=== PATIENT | female | born 1955 | race Caucasian/White ===

== ENCOUNTER 2017-11-01 14:11 | Emergency (ER) | payer OTHER ==
[2017-11-01] MEDS ORDERED: Ketorolac 30 MG/ML SDV IVPUSH ONE (14:39)
[2017-11-01] MEDS ORDERED: Sodium Chloride 0.9% 1,000 ML IV ONE (14:39)
[2017-11-01] MEDS ORDERED: Ondansetron 4 MG/2 ML SDV IV ONE (14:43)
--- NOTE | 2017-11-01 14:47 | EDM.PDOC ---
ED HPI GENERAL MEDICAL PROBLEM - General Chief Complaint: Genitourinary Problem Stated Complaint: KIDNEY STONE?? [phone] Time Seen by Provider: 11/01/17 14:40 Source of Information: Reports: Patient History Limitations: Reports: No Limitations - History of Present Illness INITIAL COMMENTS - FREE TEXT/NARRATIVE: This 61 yo female patient reports to the ED with left flank pain, nausea/ vomiting and a history of kidney stones. The patient reports her symptoms started about 3 hours ago and have continued to get worse throughout the afternoon. The patient reports she normally goes to the clinic, but her PCP is out of the office today. Onset: Today Onset Date: 11/01/17 Onset Time: 12:00 Duration: Constant, Getting Worse Location: Reports: Back (left ) Quality: Reports: Ache, Sharp, Stabbing Severity: Severe Improves with: Reports: None Worsens with: Reports: None Associated Symptoms: Reports: Nausea/Vomiting, Other (pain) Left Flank Pain Score (Numeric/FACES): 9 - Related Data Allergies Allergy/AdvReac Type Severity Reaction Status Date / Time No Known Allergies Allergy Verified 11/01/17 14:25 Home Meds: Home Meds Olmesartan Medoxomil [Benicar] 40 mg PO DAILY 11/11/14 [History] Simvastatin [Simvastatin] 40 mg PO BEDTIME 11/11/14 [History] metFORMIN [Glucophage] 1,000 mg PO BID 11/11/14 [History] Insulin Aspart [Novolog Flexpen] 6 units SUBCUT 0800 11/01/17 [History] Insulin Aspart [Novolog Flexpen] 6 units SUBCUT 1200 11/01/17 [History] Insulin Aspart [Novolog Flexpen] 8 units SUBCUT 1800 11/01/17 [History] Insulin Detemir [Levemir] 42 units SUBCUT BEDTIME 11/01/17 [History] Past Medical History Cardiovascular History: Reports: Hypertension Genitourinary History: Reports: Renal Calculus Endocrine/Metabolic History: Reports: Diabetes, Type II - Infectious Disease History Infectious Disease History: Reports: Chicken Pox, Measles, Mumps - Past Surgical History Female Surgical History: Reports: Kidney stone extraction Social & Family History - Family History Family Medical History: Noncontributory - Tobacco Use Smoking Status *Q: Never Smoker Second Hand Smoke Exposure: No - Caffeine Use Caffeine Use: Reports: Soda - Recreational Drug Use Recreational Drug Use: No ED ROS GENERAL - Review of Systems Review Of Systems: ROS reveals no pertinent complaints other than HPI. ED EXAM, RENAL/ - Physical Exam Exam: See Below Exam Limited By: No Limitations General Appearance: Alert, WD/WN, Severe Distress Eye Exam: Bilateral Eye: EOMI, Normal Inspection, PERRL Ears: Normal External Exam, Normal Canal, Hearing Grossly Normal, Normal TMs Nose: Normal Inspection, Normal Mucosa, No Blood Throat/Mouth: Normal Inspection, Normal Lips, Normal Teeth, Normal Gums, Normal Oropharynx, Normal Voice, No Airway Compromise Head: Atraumatic, Normocephalic Neck: Normal Inspection, Supple, Non-Tender, Full Range of Motion Respiratory/Chest: No Respiratory Distress Cardiovascular: Normal Peripheral Pulses, Regular Rate, Rhythm, No Edema, No Gallop, No JVD, No Murmur, No Rub GI/Abdominal: Normal Bowel Sounds, No Organomegaly, No Distention, No Abnormal Bruit, No Mass, Pelvis Stable, Tender (left side) (Female) Exam: Deferred Rectal (Female) Exam: Deferred Back Exam: CVA Tenderness (L) Extremities: Normal Inspection, Normal Range of Motion, Non-Tender, Normal Capillary Refill, No Pedal Edema Neurological: Alert, Oriented, CN II-XII Intact, Normal Cognition, Normal Gait, Normal Reflexes, No Motor/Sensory Deficits Psychiatric: Normal Affect, Normal Mood Skin Exam: Warm, Dry, Intact, Normal Color, No Rash Lymphatic: No Adenopathy Course - Vital Signs Last Recorded V/S: Last Vital Signs Temp 36.6 C 11/01/17 15:34 Pulse 65 11/01/17 15:34 Resp 18 11/01/17 15:34 BP 143/60 H 11/01/17 15:34 Pulse Ox 95 11/01/17 15:34 - Orders/Labs/Meds Labs: Laboratory Tests 11/01/17 11/01/17 11/01/17 Range/Units 14:14 14:48 14:48 WBC 10.2 H (5.0-10.0) 10^3/uL RBC 4.54 (4.2-5.4) 10^6/uL Hgb 13.7 (12.0-16.0) g/dL Hct 40.6 (37.0-47.0) % MCV 89.4 (80-100) fL MCH 30.2 (27.0-34.0) pg MCHC 33.7 (33.0-35.0) g/dL Plt Count 203 (150-450) 10^3/uL Neut % (Auto) 66.3 (42.2-75.2) % Lymph % (Auto) 23.8 (20.5-50.1) % [place] % (Auto) 8.1 H (2-8) % Eos % (Auto) 1.2 (1.0-3.0) % Baso % (Auto) 0.6 (0.0-1.0) % Sodium 141 (135-145) mmol/L Potassium 3.3 L (3.6-5.0) mmol/L Chloride 101 (101-111) mmol/L Carbon Dioxide 33.0 H (21.0-31.0) mmol/L Anion Gap 10.3 BUN 18 (7-18) mg/dL Creatinine 0.9 (0.6-1.3) mg/dL Est Cr Clr Drug Dosing 55.25 mL/min Estimated GFR (MDRD) > 60 BUN/Creatinine Ratio 20.00 Glucose 166 H (74-105) mg/dL Calcium 9.0 (8.4-10.2) mg/dl Total Bilirubin 0.4 (0.2-1.0) mg/dL AST 20 (10-42) IU/L ALT 22 (10-60) IU/L Alkaline Phosphatase 83 (42-121) IU/L Total Protein 7.1 (6.7-8.2) g/dl Albumin 4.0 (3.2-5.5) g/dl Globulin 3.1 Albumin/Globulin Ratio 1.29 Urine Color Dark yellow (YELLOW) Urine Appearance Cloudy (CLEAR) Urine pH 5.0 (5.0-9.0) Ur Specific [place] 1.025 (1.005-1.030) Urine Protein 30 H (NEGATIVE) Urine Glucose (UA) Negative (NEGATIVE) Urine Ketones Negative (NEGATIVE) Urine Occult Blood Large H (NEGATIVE) Urine Nitrite Negative (NEGATIVE) Urine Bilirubin Negative (NEGATIVE) Urine Urobilinogen 0.2 (0.2-1.0) mg/dL Ur Leukocyte Esterase Trace H (NEGATIVE) Urine RBC >100 H /HPF Urine WBC 0-5 (0-5/HPF) /HPF Ur Epithelial Cells Rare /HPF Urine Bacteria Rare (0-FEW/HPF) /HPF Meds: Medications Discontinued Medications Generic Name Dose Route Start Last Admin Trade Name Colt PRN Reason Stop Dose Admin Sodium Chloride 1,000 mls @ 999 mls/hr 11/01/17 14:39 11/01/17 14:47 Normal Saline IV 11/01/17 15:39 999 mls/hr .BOLUS ONE Administration Ketorolac Tromethamine 30 mg 11/01/17 14:39 11/01/17 14:50 Toradol IVPUSH 11/01/17 14:40 30 mg ONETIME ONE Administration Ondansetron HCl 4 mg 11/01/17 14:43 11/01/17 14:51 Zofran IV 11/01/17 14:44 4 mg ONETIME ONE Administration Tamsulosin HCl 0.4 mg 11/01/17 15:51 11/01/17 15:57 Flomax PO 11/01/17 15:52 0.4 mg ONETIME ONE Administration Departure - Departure Time of Disposition: 16:10 Disposition: Home, Self-Care 01 Condition: Fair Clinical Impression: Kidney stone on left side - Discharge Information Instructions: Kidney Stones, [id number] Referrals: Sabrina Owens PA-C [Primary Care Provider] - Forms: ED Department Discharge Care Plan Goals: The patient was advised of the examination, lab and CT results during the visit. The patient was given IV fluids, IV Toradol, IV Zofran and an oral dose of Flomax while in the ED. The patient was discharged with scripts for: 1) Toradol (10 mg) #20 to take 1 by mouth every 6 hours, 2) Flomax (0.4 mg) #4 to take 1 by mouth daily and 3) Zofran ODT (4 mg) #10 to take 1 by mouth every 6 hours as needed for nausea. If the patient has any additional symptoms or concerns, the patient should follow-up with her primary care facility or return to the emergency department.
[2017-11-01 15:15] LABS: CHLORIDE,CL 101 mmol/L (101-111); SODIUM,NA 141 mmol/L (135-145)
--- NOTE | 2017-11-01 15:42 | CT ---
Clinic history: 61-year-old 156 pound diabetic female with known "kidney stones" who presents today i n the emergency department with left flank pain. Scan technique: Volume acquisition of data emergency unenhanced CT scan of the abdomen and pelvis (ki dneys/ureters/bladder) obtained with the patient lying supine on the Siemens multi slice scanner [place], [place]. All data archived in the PACS system for storage, reform atting and study. Interpretation: Abnormal. 1. *New (same?) smaller 4 mm diameter stone lodged in the distal left ureter with pronounced proximal ipsilateral ureterectasis and pyelocaliectasis; edematous ipsilateral large kidney with surrounding small pyelosinus backflow typical chronic obstruction. 2. Huge lower pole calyceal and left renal pelvic calcification and tiny upper pole calculus left kid leon that was present on previous examination a November 2015. 3. Tiny calculus lower pole calyx unobstructed contralateral right kidney. 4. Several phleboliths in the pelvis. Normal midline uterus. No variant or adnexal mass lesions. 5. Chronic lower lumbar L5-S1 disc disease. 6. Sigmoid diverticulosis. No sign of pelvic or abdominal mass lesion, mechanical bowel obstruction, ascites or free intraperitoneal air. 7. Gallbladder, unenhanced liver, stomach, spleen and pancreas unremarkable. CONCLUSION: High-grade obstructive uropathy, on the left, associated with 4 mm diameter distal ureter al calculus.
[2017-11-01] MEDS ORDERED: Tamsulosin 0.4 MG Cap.ER PO ONE (15:51)
== END 2017-11-01 16:17 | disposition home or self-care (01) ==
LOC: DL.ED 14:11
DX: N20.0 Calculus of kidney (principal); I10 Essential (primary) hypertension; E11.9 Type 2 diabetes mellitus without complications; Z79.4 Long term (current) use of insulin; Z79.899 Other long term (current) drug therapy
CPT/HCPCS: 36415; 74176; 80053; 81001; 85025; 96361; 96374; 96375; 99284; A9270; J1885; J2405; J7030

== ENCOUNTER 2018-07-17 09:00 | Emergency (ER) | payer OTHER ==
[2018-07-17] MEDS: Sodium Chloride 0.9% 1,000 ML IV SCH (09:30)
[2018-07-17] MEDS: Ondansetron 4 MG/2 ML SDV IV ONE (09:31)
[2018-07-17] MEDS: Ketorolac 30 MG/ML SDV IVPUSH ONE (09:32)
[2018-07-17 10:08] LABS: ANION GAP 15.7
--- NOTE | 2018-07-17 10:29 | CT ---
Clinical history: 62-year-old female with a history of "stones" who presents in the emergency departm ent today with right flank/groin pain and hematuria. Patient noted on previous CT scan 21 November 2017 to have "bilateral nephrolithiasis without obstructive uropathy". Scan technique: Volume acquisition of data emergency unenhanced CT scan of the abdomen and pelvis (ki dneys/ureters/bladder) obtained while the patient was lying supine on the Siemens multi slice scanner [place], [place]. All data archived in the PACS system for storage, r eformatting axial/sagittal/coronal planes and study. Interpretation: Abnormal. 1. *Single 4 x 6 mm oval calcification lodged in the distal right ureter where it crosses the pelvic brim (proximal ureteral dilatation with ipsilateral right pyelocaliectasis new since previous exam Ja nuary 2018) i.e acutely obstructing distal right ureterolith. 2. Tiny punctate calcification lower pole calyx right kidney noted incidentally. No intraluminal calc ification urinary bladder. 3. Normal reniform size axis and configuration contralateral left kidney which has several calcificat ions identified respectively in the lower and midpole calyces (large "rock" demonstrated in the left renal pelvis on 21 November 2017 is no longer present). 4. No solid renal cortical mass lesion. Multiple phlebolith-like radiopacities in the pelvis that wer e present on earlier exam. 5. No pelvic or abdominal mass lesion and no signs of mesenteric or retroperitoneal lymphadenopathy. Normal appendix RLQ. No sign of mechanical bowel obstruction, ascites or free intraperitoneal air. 6. Gallbladder, unenhanced liver, stomach, spleen, pancreas and adrenal glands unremarkable. Divertic froylan sigmoid colon. CONCLUSION: Obstructing 4 x 6 mm distal right ureterolith.
[2018-07-17] MEDS: Ondansetron 4 MG/2 ML SDV ONE (10:45)
[2018-07-17] MEDS: Ketorolac 30 MG/ML SDV ONE (10:45)
--- NOTE | 2018-07-17 11:17 | EDM.PDOC ---
ED HPI GENERAL MEDICAL PROBLEM - General Chief Complaint: Flank Pain Stated Complaint: [id number] KIDNEY STONE Time Seen by Provider: 07/17/18 09:20 Source of Information: Reports: Patient History Limitations: Reports: No Limitations - History of Present Illness INITIAL COMMENTS - FREE TEXT/NARRATIVE: c/o pain right flank radiating around to groin. Hx kidney stones in past with surgical removal of stone on left in November. Followed up in April and was told every thing was clear. Pain started Sunday, unbearable this am, nauseated, no vomiting. No fever, rare chills. Right Flank Pain Score (Numeric/FACES): 10 - Related Data Allergies Allergy/AdvReac Type Severity Reaction Status Date / Time No Known Allergies Allergy Verified 11/01/17 14:25 Home Meds: Home Meds Olmesartan Medoxomil [Benicar] 40 mg PO DAILY 11/11/14 [History] Simvastatin 40 mg PO BEDTIME 11/11/14 [History] metFORMIN [Glucophage] 1,000 mg PO BID 11/11/14 [History] Insulin Aspart [Novolog Flexpen] 6 units SUBCUT 0800 11/01/17 [History] Insulin Aspart [Novolog Flexpen] 6 units SUBCUT 1200 11/01/17 [History] Insulin Aspart [Novolog Flexpen] 8 units SUBCUT 1800 11/01/17 [History] Insulin Detemir [Levemir] 42 units SUBCUT BEDTIME 11/01/17 [History] Past Medical History Cardiovascular History: Reports: Hypertension Genitourinary History: Reports: Renal Calculus Endocrine/Metabolic History: Reports: Diabetes, Type II - Infectious Disease History Infectious Disease History: Reports: Chicken Pox, Measles, Mumps - Past Surgical History Female Surgical History: Reports: Kidney stone extraction Social & Family History - Family History Family Medical History: Noncontributory - Tobacco Use Smoking Status *Q: Never Smoker - Caffeine Use Caffeine Use: Reports: Coffee - Recreational Drug Use Recreational Drug Use: No ED ROS GENERAL - Review of Systems Review Of Systems: See Below Constitutional: Reports: Chills HEENT: Reports: No Symptoms Respiratory: Reports: No Symptoms Cardiovascular: Reports: No Symptoms Endocrine: Reports: No Symptoms GI/Abdominal: Reports: Abdominal Pain (lower/groin), Nausea : Reports: Flank Pain (right) Musculoskeletal: Reports: No Symptoms Skin: Reports: No Symptoms ED EXAM, RENAL/ - Physical Exam Exam: See Below Exam Limited By: No Limitations General Appearance: Alert, Mild Distress Eye Exam: Bilateral Eye: EOMI Ears: Normal External Exam Nose: Normal Inspection Head: Atraumatic, Normocephalic, Other (head tremor) Neck: Full Range of Motion Respiratory/Chest: Lungs Clear Cardiovascular: Normal Peripheral Pulses, Regular Rate, Rhythm GI/Abdominal: Soft, Abnormal Bowel Sounds (hypoactive) Back Exam: Normal Inspection, CVA Tenderness (R). No: CVA Tenderness (L) Extremities: Normal Inspection Neurological: Alert, Oriented, Normal Cognition Psychiatric: Normal Affect, Normal Mood Skin Exam: Warm, Dry, Intact, Normal Color Course - Vital Signs Last Recorded V/S: Last Vital Signs Temp 97.2 F 07/17/18 10:38 Pulse 71 07/17/18 10:38 Resp 18 07/17/18 10:38 BP 166/74 H 07/17/18 10:38 Pulse Ox 96 07/17/18 10:38 - Orders/Labs/Meds Orders: Active Orders 24 hr Category Date Time Status Sodium Chloride 0.9% [Normal Saline] 1,000 ml Med 07/17/18 09:30 Active IV ASDIRECTED Medication Orders Sodium Chloride (Normal Saline) 1,000 mls @ 999 mls/hr IV ASDIRECTED KARISHMA Last Admin: 07/17/18 09:30 Dose: 999 mls/hr Labs: Laboratory Tests 07/17/18 07/17/18 07/17/18 Range/Units 09:07 09:25 09:44 WBC 10.7 H (5.0-10.0) 10^3/uL RBC 4.64 (4.2-5.4) 10^6/uL Hgb 13.8 (12.0-16.0) g/dL Hct 41.1 (37.0-47.0) % MCV 88.6 (80-100) fL MCH 29.7 (27.0-34.0) pg MCHC 33.6 (33.0-35.0) g/dL Plt Count 230 (150-450) 10^3/uL Neut % (Auto) 66.8 (42.2-75.2) % Lymph % (Auto) 18.9 L (20.5-50.1) % [place] % (Auto) 12.9 H (2-8) % Eos % (Auto) 1.0 (1.0-3.0) % Baso % (Auto) 0.4 (0.0-1.0) % Sodium 139 (135-145) mmol/L Potassium 3.7 (3.6-5.0) mmol/L Chloride 101 (101-111) mmol/L Carbon Dioxide 26.0 (21.0-31.0) mmol/L Anion Gap 15.7 BUN 30 H (7-18) mg/dL Creatinine 1.7 H (0.6-1.3) mg/dL Est Cr Clr Drug Dosing 27.65 mL/min Estimated GFR (MDRD) 30 Glucose 156 H (74-105) mg/dL Calcium 9.4 (8.4-10.2) mg/dl Urine Color Red (YELLOW) Urine Appearance Cloudy (CLEAR) Urine pH 7.0 (5.0-9.0) Ur Specific [place] 1.020 (1.005-1.030) Urine Protein 30 H (NEGATIVE) Urine Glucose (UA) Negative (NEGATIVE) Urine Ketones Negative (NEGATIVE) Urine Occult Blood Large H (NEGATIVE) Urine Nitrite Negative (NEGATIVE) Urine Bilirubin Negative (NEGATIVE) Urine Urobilinogen 0.2 (0.2-1.0) mg/dL Ur Leukocyte Esterase Negative (NEGATIVE) Urine RBC Semi-packed H /HPF Urine WBC 0-5 (0-5/HPF) /HPF Ur Epithelial Cells Few /HPF Urine Bacteria Not seen (0-FEW/HPF) /HPF Urine Mucus Not seen /LPF Meds: Medications Generic Name Dose Route Start Last Admin Trade Name Fresammy PRN Reason Stop Dose Admin Sodium Chloride 1,000 mls @ 999 mls/hr 07/17/18 09:30 07/17/18 09:30 Normal Saline IV 999 mls/hr ASDIRECTED KARISHMA Administration Discontinued Medications Generic Name Dose Route Start Last Admin Trade Name Freq PRN Reason Stop Dose Admin Ketorolac Tromethamine 30 mg 07/17/18 09:25 07/17/18 09:32 Toradol IVPUSH 07/17/18 09:26 30 mg ONETIME ONE Administration Ketorolac Tromethamine Confirm 07/17/18 09:28 07/17/18 10:45 Toradol Administered 07/17/18 09:29 Not Given Dose 30 mg .ROUTE .STK-MED ONE Ondansetron HCl 4 mg 07/17/18 09:25 07/17/18 09:31 Zofran IV 07/17/18 09:26 4 mg ONETIME ONE Administration Ondansetron HCl Confirm 07/17/18 09:28 07/17/18 10:45 Zofran Administered 07/17/18 09:29 Not Given Dose 4 mg .ROUTE .STK-MED ONE - Re-Assessments/Exams Free Text/Narrative Re-Assessment/Exam: 07/17/18 11:[address] [facility]. Patient to follow up with Dr Pérez within one week. Departure - Departure Time of Disposition: 11:17 Disposition: Home, Self-Care 01 Condition: Good Clinical Impression: Kidney stone - Discharge Information *PRESCRIPTION DRUG MONITORING PROGRAM REVIEWED*: No *COPY OF PRESCRIPTION DRUG MONITORING REPORT IN PATIENT [place]: No Instructions: Kidney Stones, [id number] Forms: ED Department Discharge Additional Instructions: flomax 0.4mg one daily for one week hydrocodone 10/325 one every 6 hours as needed for severe pain zofran 4mg ODT one every 4 hours as needed for nausea vomiting increase fluids follow up with primary care to recheck creatinine on Sunday. BUN 30 Creat 1.7 Clinic follow up with urology within one week Urgent follow up severe pain, vomiting , fever - My Orders Last 24 Hours: My Active Orders 07/17/18 09:30 Sodium Chloride 0.9% [Normal Saline] 1,000 ml IV ASDIRECTED - Assessment/Plan Last 24 Hours: My Active Orders 07/17/18 09:30 Sodium Chloride 0.9% [Normal Saline] 1,000 ml IV ASDIRECTED
== END 2018-07-17 11:35 | disposition home or self-care (01) ==
LOC: DL.ED 09:00
DX: N20.2 Calculus of kidney with calculus of ureter (principal); E11.9 Type 2 diabetes mellitus without complications; Z79.899 Other long term (current) drug therapy; Z79.4 Long term (current) use of insulin
CPT/HCPCS: 36415; 74176; 80048; 81001; 85025; 96374; 96375; 99284; J1885; J2405; J7030

== ENCOUNTER 2019-04-27 17:52 | Emergency (ER) | payer MEDICARE, OTHER ==
[2019-04-27] MEDS ORDERED: Ketorolac 10 MG Tab PO ONE (17:53)
[2019-04-27] MEDS ORDERED: Acetaminophen/HYDROcodone 325-10 MG Tab PO ONE (17:53)
[2019-04-27] MEDS ORDERED: Ondansetron 4 MG/2 ML SDV ONE (19:00)
[2019-04-27] MEDS ORDERED: Sodium Chloride 0.9% 1,000 ML ONE (19:01)
[2019-04-27] MEDS ORDERED: Ondansetron 4 MG/2 ML SDV IV ONE (19:35)
[2019-04-27] MEDS ORDERED: Sodium Chloride 0.9% 1,000 ML IV ONE (19:36)
--- NOTE | 2019-04-27 19:47 | EDM.PDOC ---
"ED HPI GENERAL MEDICAL PROBLEM - General Chief Complaint: Genitourinary Problem Stated Complaint: KIDNEY STONE Time Seen by Provider: 04/27/19 19:40 Source of Information: Reports: Patient History Limitations: Reports: No Limitations - History of Present Illness INITIAL COMMENTS - FREE TEXT/NARRATIVE: This 63 yo female patient reports to the ED with right flank pain that started today at 1300. The patient reports she has had a history of kidney stones with previous surgeries to remove stones. The patient reports she has not had any additional abdominal surgeries. Onset: Today Onset Date: 04/27/19 Onset Time: 13:00 Duration: Constant Location: Reports: Back (right flank) Quality: Reports: Ache, Sharp Severity: Moderate Improves with: Reports: None Worsens with: Reports: None Context: Reports: Other Associated Symptoms: Reports: Nausea/Vomiting - Related Data Allergies Allergy/AdvReac Type Severity Reaction Status Date / Time No Known Allergies Allergy Verified 04/27/19 18:34 Home Meds: Home Meds Olmesartan Medoxomil [Benicar] 40 mg PO DAILY 11/11/14 [History] Simvastatin 40 mg PO BEDTIME 11/11/14 [History] metFORMIN [Glucophage] 1,000 mg PO BID 11/11/14 [History] Insulin Aspart [Novolog Flexpen] 6 units SUBCUT 0800 11/01/17 [History] Insulin Aspart [Novolog Flexpen] 6 units SUBCUT 1200 11/01/17 [History] Insulin Aspart [Novolog Flexpen] 8 units SUBCUT 1800 11/01/17 [History] Insulin Detemir [Levemir] 42 units SUBCUT BEDTIME 11/01/17 [History] Past Medical History Cardiovascular History: Reports: Hypertension Genitourinary History: Reports: Renal Calculus Endocrine/Metabolic History: Reports: Diabetes, Type II - Infectious Disease History Infectious Disease History: Reports: Chicken Pox, Measles, Mumps - Past Surgical History Female Surgical History: Reports: Kidney stone extraction Social & Family History - Family History Family Medical History: Noncontributory - Tobacco Use Smoking Status *Q: Never Smoker Second Hand Smoke Exposure: No - Caffeine Use Caffeine Use: Reports: Coffee, Tea - Recreational Drug Use Recreational Drug Use: No ED ROS GENERAL - Review of Systems Review Of Systems: ROS reveals no pertinent complaints other than HPI. ED EXAM, RENAL/ - Physical Exam Exam: See Below Exam Limited By: No Limitations General Appearance: Alert, WD/WN, Moderate Distress Eye Exam: Bilateral Eye: EOMI, Normal Inspection, PERRL Ears: Normal External Exam, Normal Canal, Hearing Grossly Normal, Normal TMs Nose: Normal Inspection, Normal Mucosa, No Blood Throat/Mouth: Normal Inspection, Normal Lips, Normal Teeth, Normal Gums, Normal Oropharynx, Normal Voice, No Airway Compromise Head: Atraumatic, Normocephalic Neck: Normal Inspection, Supple, Non-Tender, Full Range of Motion Respiratory/Chest: No Respiratory Distress, Lungs Clear, Normal Breath Sounds, No Accessory Muscle Use, Chest Non-Tender Cardiovascular: Normal Peripheral Pulses, Regular Rate, Rhythm, No Edema, No Gallop, No JVD, No Murmur, No Rub GI/Abdominal: Normal Bowel Sounds, Soft, Non-Tender, No Organomegaly, No Distention, No Abnormal Bruit, No Mass (Female) Exam: Deferred Rectal (Female) Exam: Deferred Back Exam: CVA Tenderness (R), Other (cyst mid back) Extremities: Normal Inspection, Normal Range of Motion, Non-Tender, Normal Capillary Refill, No Pedal Edema Neurological: Alert, Oriented, CN II-XII Intact, Normal Cognition, Normal Gait, Normal Reflexes, No Motor/Sensory Deficits Psychiatric: Normal Affect, Normal Mood Lymphatic: No Adenopathy Course - Vital Signs Last Recorded V/S: Last Vital Signs Temp 36.9 C 04/27/19 18:34 Pulse 76 04/27/19 18:34 Resp 16 04/27/19 18:34 BP 168/76 H 04/27/19 18:34 Pulse Ox 100 04/27/19 18:34 - Orders/Labs/Meds Orders: Active Orders 24 hr Category Date Time Status CULTURE URINE [RM] Urgent Lab 04/27/19 20:00 Received Labs: Laboratory Tests 04/27/19 04/27/19 04/27/19 Range/Units 18:50 18:50 20:00 WBC 14.5 H (5.0-10.0) 10^3/uL RBC 4.65 (4.2-5.4) 10^6/uL Hgb 14.1 (12.0-16.0) g/dL Hct 42.0 (37.0-47.0) % MCV 90.3 (80-100) fL MCH 30.3 (27.0-34.0) pg MCHC 33.6 (33.0-35.0) g/dL Plt Count 200 (150-450) 10^3/uL Neut % (Auto) 76.7 H (42.2-75.2) % Lymph % (Auto) 12.4 L (20.5-50.1) % [place] % (Auto) 9.5 H (2-8) % Eos % (Auto) 1.0 (1.0-3.0) % Baso % (Auto) 0.4 (0.0-1.0) % Sodium 140 (135-145) mmol/L Potassium 3.7 (3.6-5.0) mmol/L Chloride 101 (101-111) mmol/L Carbon Dioxide 26.0 (21.0-31.0) mmol/L Anion Gap 16.7 BUN 23 H (7-18) mg/dL Creatinine 1.4 H (0.6-1.3) mg/dL Est Cr Clr Drug Dosing 34.59 mL/min Estimated GFR (MDRD) 38 BUN/Creatinine Ratio 16.42 Glucose 159 H (74-105) mg/dL Calcium 9.0 (8.4-10.2) mg/dl Total Bilirubin 0.6 (0.2-1.0) mg/dL AST 26 (10-42) IU/L ALT 29 (10-60) IU/L Alkaline Phosphatase 73 (42-121) IU/L Total Protein 7.3 (6.7-8.2) g/dl Albumin 4.2 (3.2-5.5) g/dl Globulin 3.1 Albumin/Globulin Ratio 1.35 Urine Color Yellow (YELLOW) Urine Appearance Clear (CLEAR) Urine pH 5.0 (5.0-9.0) Ur Specific [place] 1.025 (1.005-1.030) Urine Protein Trace H (NEGATIVE) Urine Glucose (UA) Negative (NEGATIVE) Urine Ketones Negative (NEGATIVE) Urine Occult Blood Large H (NEGATIVE) Urine Nitrite Negative (NEGATIVE) Urine Bilirubin Negative (NEGATIVE) Urine Urobilinogen 0.2 (0.2-1.0) mg/dL Ur Leukocyte Esterase Trace H (NEGATIVE) Urine RBC >100 H /HPF Urine WBC 5-10 H (0-5/HPF) /HPF Ur Epithelial Cells Moderate H (NOT SEEN) /HPF Urine Bacteria Few (0-FEW/HPF) /HPF Hyaline Casts Few H (NOT SEEN) /LPF Meds: Medications Discontinued Medications Generic Name Dose Route Start Last Admin Trade Name Colt PRN Reason Stop Dose Admin Sodium Chloride Confirm 04/27/19 19:01 04/27/19 19:41 Normal Saline Administered 04/27/19 19:02 Not Given Dose 1,000 mls @ as directed .ROUTE .STK-MED ONE Sodium Chloride 1,000 mls @ 999 mls/hr 04/27/19 19:36 04/27/19 19:05 Normal Saline IV 04/27/19 20:36 999 mls/hr .BOLUS ONE Administration Ketorolac Tromethamine 30 mg 04/27/19 20:51 Toradol IVPUSH 04/27/19 20:52 ONETIME ONE Morphine Sulfate 2 mg 04/27/19 20:23 04/27/19 20:28 Morphine IVPUSH 04/27/19 20:24 2 mg ONETIME ONE Administration Ondansetron HCl Confirm 04/27/19 19:00 04/27/19 19:42 Zofran Administered 04/27/19 19:01 Not Given Dose 4 mg .ROUTE .STK-MED ONE Ondansetron HCl 4 mg 04/27/19 19:35 04/27/19 19:05 Zofran IV 04/27/19 19:36 4 mg ONETIME ONE Administration Tamsulosin HCl 0.4 mg 04/27/19 20:51 Flomax PO 04/27/19 20:52 ONETIME ONE - Radiology Interpretation Free Text/Narrative:: EXAM: CT Abdomen and Pelvis Without Contrast EXAM DATE/TIME: 04/27/2019 8:03 PM CLINICAL HISTORY: 63 years old, female; Signs and symptoms; Other: Right flank pain HX renal stones TECHNIQUE: Imaging protocol: Axial computed tomography images of the abdomen and pelvis without contrast. Coronal and sagittal reformatted images were created and reviewed. Radiation optimization: All CT scans at this facility use at least one of these dose optimization techniques: automated exposure control; mA and/or kV adjustment per patient size (includes targeted exams where dose is matched to clinical indication); or iterative reconstruction. COMPARISON: CT Abdomen Pelvis wo Cont 07/17/2018 10:04 AM FINDINGS: ABDOMEN: Liver: Normal. No mass. Gallbladder and bile ducts: Normal. No calcified stones. No ductal dilation. Pancreas: Normal. No ductal dilation. Spleen: Normal. No splenomegaly. Adrenals: Normal. No mass. Kidneys and ureters: 2 mm and 6 mm stones in the right UVJ with right hydroureteronephrosis. Edematous right kidney. 1 cm nonobstructing left renal stone. Stomach and bowel: Distal colonic diverticulosis without diverticulitis. Appendix: No evidence of appendicitis. LON SUAREZ | Final Radiology Report CONFIDENTIALITY STATEMENT This report is intended only for use by the referring physician, and only in accordance with law. If you received this in error, call [phone]. Page 2 of 2 PELVIS: Bladder: Unremarkable as visualized. Reproductive: Unremarkable as visualized. ABDOMEN and PELVIS: Intraperitoneal space: Normal. No free air. No significant fluid collection. Bones/joints: No acute fracture. No dislocation. Soft tissues: Unremarkable. Vasculature: Normal. No abdominal aortic aneurysm. Lymph nodes: Normal. No enlarged lymph nodes. IMPRESSION: 2 mm and 6 mm stones in the right UVJ with right hydroureteronephrosis. Edematous right kidney. 1 cm nonobstructing left renal stone. Distal colonic diverticulosis without diverticulitis. Thank you for allowing us to participate in the care of your patient. Dictated and Authenticated by: Niranjan Wiley MD 04/27/2019 8:42 PM Central Time ([place] & [place]) Departure - Departure Time of Disposition: 20:57 Disposition: Home, Self-Care 01 Condition: Fair Clinical Impression: Kidney stone on right side - Discharge Information *PRESCRIPTION DRUG MONITORING PROGRAM REVIEWED*: Not Applicable *COPY OF PRESCRIPTION DRUG MONITORING REPORT IN PATIENT [place]: Not Applicable Instructions: Kidney Stones, [id number] Forms: ED Department Discharge Care Plan Goals: The patient was advised of the examination, lab and CT results during the visit. The patient was given IV fluids, IV Morphine, IV Toradol and an oral dose of Flomax while in the ED. The patient was also discharged with Toradol ( 10 mg) #2 to take 1 by mouth every 6 hours and [place] (10/325) #2 to take 1 by mouth every 6 hours as needed for pain. The patient was discharged with a script for Toradol (10 mg) #20 to take 1 by mouth every 6 hours with food, Flomax (0.4 mg) #6 to take 1 by mouth daily for 10 days and [place] (5/325) #8 to take 1 by mouth every 6 hours as needed. The patient should follow-up with his primary care facility in about 1 week. If the patient has any additional symptoms or concerns, the patient should either return to the emergency department or visit his primary care facility. - My Orders Last 24 Hours: My Active Orders 04/27/19 20:00 CULTURE URINE [RM] Urgent - Assessment/Plan Last 24 Hours: My Active Orders 04/27/19 20:00 CULTURE URINE [RM] Urgent"
[2019-04-27 20:00] LABS: ANION GAP 16.7
[2019-04-27] MEDS ORDERED: Morphine 2 MG/ML Syringe IVPUSH ONE (20:23)
[2019-04-27] MEDS ORDERED: Ketorolac 30 MG/ML SDV IVPUSH ONE (20:51)
[2019-04-27] MEDS ORDERED: Tamsulosin 0.4 MG Cap.ER PO ONE (20:51)
[2019-04-27] MEDS ORDERED: Acetaminophen/HYDROcodone 325-10 MG Tab ONE (21:00)
[2019-04-27] MEDS ORDERED: Ketorolac 10 MG Tab ONE (21:00)
== END 2019-04-27 21:05 | disposition home or self-care (01) ==
LOC: DL.ED 17:52
DX: N13.2 Hydronephrosis with renal and ureteral calculous obstruction (principal); E11.9 Type 2 diabetes mellitus without complications; I10 Essential (primary) hypertension; Z79.899 Other long term (current) drug therapy; Z79.4 Long term (current) use of insulin
CPT/HCPCS: 36415; 74176; 80053; 81001; 85025; 96365; 96366; 96375; 99284; A9270; J1885; J2270; J2405; J7030; 87086

== ENCOUNTER 2019-11-01 01:08 | Emergency (ER) | payer MEDICARE, OTHER ==
[2019-11-01] MEDS ORDERED: Ondansetron 4 MG Tab.DIS PO ONE (01:09)
[2019-11-01] MEDS ORDERED: Sodium Chloride 0.9% 1,000 ML IV ONE (01:30)
[2019-11-01] MEDS ORDERED: Ketorolac 30 MG/ML SDV IVPUSH ONE (01:30)
[2019-11-01] MEDS ORDERED: Ondansetron 4 MG/2 ML SDV IV ONE (01:30)
--- NOTE | 2019-11-01 01:33 | EDM.PDOC ---
ED HPI GENERAL MEDICAL PROBLEM - General Chief Complaint: Genitourinary Problem Stated Complaint: KIDNEY STONE PER PT Time Seen by Provider: 11/01/19 01:32 Source of Information: Reports: Patient History Limitations: Reports: No Limitations - History of Present Illness INITIAL COMMENTS - FREE TEXT/NARRATIVE: c/o K-stone pain on left side. has h/o problems. Left Flank Pain Score (Numeric/FACES): 8 - Related Data Allergies Allergy/AdvReac Type Severity Reaction Status Date / Time No Known Allergies Allergy Verified 11/01/19 01:44 Home Meds: Home Meds Olmesartan Medoxomil [Benicar] 40 mg PO DAILY 11/11/14 [History] Simvastatin 40 mg PO BEDTIME 11/11/14 [History] metFORMIN [Glucophage] 1,000 mg PO BID 11/11/14 [History] Insulin Aspart [Novolog Flexpen] 6 units SUBCUT 0800 11/01/17 [History] Insulin Aspart [Novolog Flexpen] 6 units SUBCUT 1200 11/01/17 [History] Insulin Aspart [Novolog Flexpen] 8 units SUBCUT 1800 11/01/17 [History] Insulin Detemir [Levemir] 42 units SUBCUT BEDTIME 11/01/17 [History] Past Medical History Cardiovascular History: Reports: Hypertension Genitourinary History: Reports: Renal Calculus Endocrine/Metabolic History: Reports: Diabetes, Type II - Infectious Disease History Infectious Disease History: Reports: Chicken Pox, Measles, Mumps - Past Surgical History Female Surgical History: Reports: Kidney stone extraction Social & Family History - Family History Family Medical History: Noncontributory - Caffeine Use Caffeine Use: Reports: Coffee, Tea ED ROS GENERAL - Review of Systems Review Of Systems: Comprehensive ROS is negative, except as noted in HPI. ED EXAM, RENAL/ - Physical Exam Exam: See Below Exam Limited By: No Limitations General Appearance: Alert, WD/WN, Mild Distress, Moderate Distress, Other ( nausea & pain). No: Active Emesis (nausea pain) Ears: Hearing Grossly Normal Throat/Mouth: Normal Voice, No Airway Compromise Head: Atraumatic Neck: Non-Tender, Full Range of Motion Respiratory/Chest: No Respiratory Distress Cardiovascular: Regular Rate, Rhythm GI/Abdominal: Soft, Non-Tender Back Exam: CVA Tenderness (L) Neurological: Alert, Oriented, Normal Cognition, Normal Gait, No Motor/Sensory Deficits Psychiatric: Tearful Skin Exam: Warm, Dry, Normal Color Course - Vital Signs Last Recorded V/S: Last Vital Signs Temp 35.8 C 11/01/19 03:19 Pulse 70 11/01/19 03:19 Resp 18 11/01/19 03:19 BP 143/74 H 11/01/19 03:19 Pulse Ox 98 11/01/19 03:19 - Orders/Labs/Meds Orders: Active Orders 24 hr Category Date Time Status Abdomen Pelvis wo Cont [CT] Urgent Exams 11/01/19 01:38 Taken CULTURE URINE [RM] Stat Lab 11/01/19 02:29 Received Labs: Laboratory Tests 11/01/19 11/01/19 11/01/19 Range/Units 01:25 01:25 02:29 WBC 8.0 (5.0-10.0) 10^3/uL RBC 4.59 (4.2-5.4) 10^6/uL Hgb 13.6 (12.0-16.0) g/dL Hct 41.0 (37.0-47.0) % MCV 89.3 (80-100) fL MCH 29.6 (27.0-34.0) pg MCHC 33.2 (33.0-35.0) g/dL Plt Count 210 (150-450) 10^3/uL Neut % (Auto) 52.0 (42.2-75.2) % Lymph % (Auto) 35.9 (20.5-50.1) % [place] % (Auto) 9.6 H (2-8) % Eos % (Auto) 2.0 (1.0-3.0) % Baso % (Auto) 0.5 (0.0-1.0) % Sodium 142 (135-145) mmol/L Potassium 3.3 L (3.6-5.0) mmol/L Chloride 102 (101-111) mmol/L Carbon Dioxide 31.0 (21.0-31.0) mmol/L Anion Gap 12.3 BUN 19 H (7-18) mg/dL Creatinine 1.1 (0.6-1.3) mg/dL Est Cr Clr Drug Dosing 45.88 mL/min Estimated GFR (MDRD) 50 BUN/Creatinine Ratio 17.27 Glucose 178 H (74-105) mg/dL Calcium 9.9 (8.4-10.2) mg/dl Total Bilirubin 0.4 (0.2-1.0) mg/dL AST 27 (10-42) IU/L ALT 33 (10-60) IU/L Alkaline Phosphatase 68 (42-121) IU/L B-Natriuretic Peptide 176 H (0-100) pg/ml Total Protein 7.5 (6.7-8.2) g/dl Albumin 4.4 (3.2-5.5) g/dl Globulin 3.1 Albumin/Globulin Ratio 1.42 Urine Color Brown (YELLOW) Urine Appearance Turbid (CLEAR) Urine pH 6.0 (5.0-9.0) Ur Specific [place] 1.025 (1.005-1.030) Urine Protein 30 H (NEGATIVE) Urine Glucose (UA) Negative (NEGATIVE) Urine Ketones Negative (NEGATIVE) Urine Occult Blood Large H (NEGATIVE) Urine Nitrite Negative (NEGATIVE) Urine Bilirubin Negative (NEGATIVE) Urine Urobilinogen 0.2 (0.2-1.0) mg/dL Ur Leukocyte Esterase Small H (NEGATIVE) Urine RBC >100 H /HPF Urine WBC 20-30 H (0-5/HPF) /HPF Ur Epithelial Cells Moderate H (NOT SEEN) /HPF Urine Bacteria Many H (0-FEW/HPF) /HPF 11/01/ Range/Units 03:15 WBC (5.0-10.0) 10^3/uL RBC (4.2-5.4) 10^6/uL Hgb (12.0-16.0) g/dL Hct (37.0-47.0) % MCV (80-100) fL MCH (27.0-34.0) pg MCHC (33.0-35.0) g/dL Plt Count (150-450) 10^3/uL Neut % (Auto) (42.2-75.2) % Lymph % (Auto) (20.5-50.1) % [place] % (Auto) (2-8) % Eos % (Auto) (1.0-3.0) % Baso % (Auto) (0.0-1.0) % Sodium (135-145) mmol/L Potassium (3.6-5.0) mmol/L Chloride (101-111) mmol/L Carbon Dioxide (21.0-31.0) mmol/L Anion Gap BUN (7-18) mg/dL Creatinine (0.6-1.3) mg/dL Est Cr Clr Drug Dosing mL/min Estimated GFR (MDRD) BUN/Creatinine Ratio Glucose (74-105) mg/dL Calcium (8.4-10.2) mg/dl Total Bilirubin (0.2-1.0) mg/dL AST (10-42) IU/L ALT (10-60) IU/L Alkaline Phosphatase (42-121) IU/L B-Natriuretic Peptide (0-100) pg/ml Total Protein (6.7-8.2) g/dl Albumin (3.2-5.5) g/dl Globulin Albumin/Globulin Ratio Urine Color Yellow (YELLOW) Urine Appearance Cloudy (CLEAR) Urine pH 7.0 (5.0-9.0) Ur Specific [place] 1.020 (1.005-1.030) Urine Protein 30 H (NEGATIVE) Urine Glucose (UA) Negative (NEGATIVE) Urine Ketones Negative (NEGATIVE) Urine Occult Blood Large H (NEGATIVE) Urine Nitrite Negative (NEGATIVE) Urine Bilirubin Negative (NEGATIVE) Urine Urobilinogen 0.2 (0.2-1.0) mg/dL Ur Leukocyte Esterase Negative (NEGATIVE) Urine RBC >100 H /HPF Urine WBC 5-10 H (0-5/HPF) /HPF Ur Epithelial Cells Moderate H (NOT SEEN) /HPF Urine Bacteria Many H (0-FEW/HPF) /HPF Meds: Medications Discontinued Medications Generic Name Dose Route Start Last Admin Trade Name Freq PRN Reason Stop Dose Admin Hydrocodone Bitart/Acetaminophen 1 tab 11/01/19 03:42 Dinosaur 325-10 Mg PO 11/01/19 03:43 ONETIME ONE Sodium Chloride 1,000 mls @ 999 mls/hr 11/01/19 01:30 11/01/19 01:42 Normal Saline IV 11/01/19 02:30 999 mls/hr .BOLUS ONE Administration Ketorolac Tromethamine 30 mg 11/01/19 01:30 11/01/19 01:41 Toradol IVPUSH 11/01/19 01:31 30 mg ONETIME ONE Administration Ondansetron HCl 4 mg 11/01/19 01:30 11/01/19 01:39 Zofran IV 11/01/19 01:31 4 mg ONETIME ONE Administration Tamsulosin HCl 0.4 mg 11/01/19 02:15 11/01/19 02:24 Flomax PO 11/01/19 02:16 0.4 mg ONETIME ONE Administration - Re-Assessments/Exams Free Text/Narrative Re-Assessment/Exam: 11/01/19 02:16 re-exam; feeling much better presently. 11/01/19 03:43 results discussed with pt. case discussed with Dr Parr @ [facility] who states pt can be f/u as outpatient if there is no definitive evidence of UTI. pt states really prefers to go home since her pain is almost gone. Departure - Departure Time of Disposition: 03:46 Disposition: Home, Self-Care 01 Condition: Good Clinical Impression: Kidney stone on left side - Discharge Information Instructions: Kidney Stones, [id number] Forms: ED Department Discharge Additional Instructions: 1) drink lots of liquids 2) recheck if there is any change or concerns 3) contact Dr Pérez if you don't hear from him on Sunday rx given; vicodin 5/325mg tid prn x 12 zofran 4mg ODT bid prn x 6 Sepsis Event Note - Focused Exam Vital Signs: Vital Signs Temp Pulse Resp BP Pulse Ox 11/01/19 03:19 35.8 C 70 18 143/74 H 98 11/01/19 01:29 35.7 C 71 18 151/78 H 98 Date Exam was Performed: 11/01/19 Time Exam was Performed: 03:43 - My Orders Last 24 Hours: My Active Orders 11/01/19 01:38 Abdomen Pelvis wo Cont [CT] Urgent 11/01/19 02:29 CULTURE URINE [RM] Stat - Assessment/Plan Last 24 Hours: My Active Orders 11/01/19 01:38 Abdomen Pelvis wo Cont [CT] Urgent 11/01/19 02:29 CULTURE URINE [RM] Stat
[2019-11-01 01:49] LABS: ANION GAP 12.3
[2019-11-01] MEDS ORDERED: Tamsulosin 0.4 MG Cap.ER PO ONE (02:15)
[2019-11-01] MEDS ORDERED: Acetaminophen/HYDROcodone 325-10 MG Tab PO ONE (03:42)
[2019-11-01] MEDS ORDERED: Ondansetron 4 MG Tab.DIS ONE (03:48)
== END 2019-11-01 03:54 | disposition home or self-care (01) ==
LOC: DL.ED 01:08
DX: N13.2 Hydronephrosis with renal and ureteral calculous obstruction (principal); I10 Essential (primary) hypertension; E11.9 Type 2 diabetes mellitus without complications; Z79.4 Long term (current) use of insulin; Z79.899 Other long term (current) drug therapy
CPT/HCPCS: 36415; 74176; 80053; 81001; 83880; 85025; 87086; 96361; 96374; 96375; 99284; A9270; J1885; J2405; J7030